=== PATIENT | female | born 1940 | race Two or more races ===

== ENCOUNTER 2019-10-31 11:08 | Emergency (ER) | payer MEDICARE, MEDICAID ==
[~2019-10-31] VITALS: Ht 162.6 cm; Wt 60.0 kg
[2019-10-31] MEDS ORDERED: KETOROLAC 30MG/ML VIAL IV STA (11:32)
[2019-10-31] MEDS ORDERED: SODIUM CHLORIDE 0.9% 1,000 ML IV ONE (11:32)
[2019-10-31 12:09] LABS: BASOPHILS % 0.2 % (0.0-2.0); EOSINOPHILS % 2.4 % (0.0-5.0); HEMATOCRIT. 43.1 % (36.0-48.0); HEMOGLOBIN. 14.6 g/dL (12.0-16.0); LYMPHOCYTES % 26.7 % (20.0-50.0); MEAN CORPUSCULAR HEMOGLOBIN 30.5 pg (28.0-32.0); MEAN CORPUSCULAR VOLUME 90.3 fL (81.0-99.0); MEAN PLATELET VOLUME 7.9 fl (7.4-10.4); MONOCYTES % 8.1 % (2.0-8.0); NEUTROPHILS % 62.6 % (40.0-76.0); PLATELET 232 x1000/uL (130-400); RED BLOOD CELL COUNT 4.78 mill/uL (4.2-5.4); RED CELL DISTRIBUTION WIDTH 13.3 % (11.6-14.6)
[2019-10-31 12:17] LABS: CHLORIDE 104 mEq/L (98-107)
[2019-10-31 12:36] LABS: CLARITY URINE CLOUDY (CLEAR); COLOR URINE YELLOW (YELLOW); KETONES URINE NEGATIVE (NEGATIVE); LEUKOCYTE ESTERASE URINE 1+ (NEGATIVE); NITRITE URINE NEGATIVE (NEGATIVE); OCCULT BLOOD URINE TRACE (NEGATIVE); PH URINE 5.5 (4.5-8.0); PROTEIN URINE NEGATIVE (NEGATIVE); SPECIFIC GRAVITY URINE 1.024 (1.005-1.030); UROBILINOGEN URINE 0.2 E.U./dL (0.2-1.0)
[2019-10-31] MEDS ORDERED: CEFTRIAXONE 1 G PREMIX 50 ML IV ONE (13:15)
[2019-10-31 14:46] LABS: INR 1.1; PROTHROMBIN TIME 11.7 sec (9.6-11.0)
[2019-10-31 16:00] VITALS: BP 155/68
== END 2019-10-31 16:14 | disposition home or self-care (01) ==
LOC: ER 11:08
DX: N10 Acute pyelonephritis (principal); I10 Essential (primary) hypertension; E78.00 Pure hypercholesterolemia, unspecified; K57.90 Diverticulosis of intestine, part unspecified, without perforation or abscess without bleeding; Z86.73 Personal history of transient ischemic attack (TIA), and cerebral infarction without residual deficits; Z85.3 Personal history of malignant neoplasm of breast; Z90.11 Acquired absence of right breast and nipple; Z96.641 Presence of right artificial hip joint
CPT/HCPCS: 36415; 74176; 80053; 81003; 83690; 85025; 85610; 96361; 96365; 96366; 96375; 99284; J0696; J1885; J7030

== ENCOUNTER 2021-09-19 11:46 | Emergency (ER) | payer MEDICARE, MEDICAID ==
[~2021-09-19] VITALS: Ht 165.1 cm; Wt 59.0 kg
[2021-09-19] MEDS ORDERED: ACETAMINOPHEN 325MG TABLET PO ONE (12:30)
[2021-09-19 12:44] VITALS: BP 174/68
== END 2021-09-19 13:54 | disposition home or self-care (01) ==
LOC: ER 11:46
DX: S63.619A Unspecified sprain of unspecified finger, initial encounter (principal); M25.531 Pain in right wrist; M25.521 Pain in right elbow; M25.561 Pain in right knee; I10 Essential (primary) hypertension; E78.00 Pure hypercholesterolemia, unspecified; Z88.5 Allergy status to narcotic agent; Z86.73 Personal history of transient ischemic attack (TIA), and cerebral infarction without residual deficits; Z98.890 Other specified postprocedural states; W01.0XXA Fall on same level from slipping, tripping and stumbling without subsequent striking against object, initial encounter; Y93.89 Activity, other specified; Y92.89 Other specified places as the place of occurrence of the external cause; Y99.8 Other external cause status
CPT/HCPCS: 73080; 73110; 73130; 73560; 99284

== ENCOUNTER 2022-07-18 21:21 | Emergency (ER) | payer MEDICARE, MEDICAID ==
[~2022-07-18] VITALS: Ht 160 cm; Wt 82.0 kg
[2022-07-18] MEDS ORDERED: HYDROCHLOROTHIAZIDE 12.5MG CAPSULE PO ONE (22:30)
[2022-07-18] MEDS ORDERED: CLONIDINE 0.1MG TABLET PO ONE (22:30)
[2022-07-19 05:22] VITALS: BP 133/61
== END 2022-07-19 05:38 | disposition home or self-care (01) ==
LOC: ER 21:21
DX: I16.0 Hypertensive urgency (principal); I10 Essential (primary) hypertension; E78.00 Pure hypercholesterolemia, unspecified; Z86.73 Personal history of transient ischemic attack (TIA), and cerebral infarction without residual deficits
CPT/HCPCS: 93005; 99285